=== PATIENT | female | born 1990 | race Caucasian/White ===

== ENCOUNTER → 2017-11-14 | Outpatient (CLI) | payer BC ==
[~2017-11-14] MED LIST: MTR600X PO
== END | disposition home or self-care (01) ==
LOC: C.LABSPEC 17:58
PROVIDERS: ATTEND Nurse Practitioner
DX: R19.8 Other specified symptoms and signs involving the digestive system and abdomen (principal)

== ENCOUNTER 2021-01-19 05:24 | Inpatient (IN) ==
--- NOTE | 2021-01-07 13:26 | Communication Note ---
Patient scheduled for upcoming planned c/s 01/19/21. Patient was personally COVID positive 11/27/20 (report in [employer]). At time of infection, patient had fever, body aches, loss of taste/smell, dyspnea which has since resolved (except for persistence in difficulty smelling but nothing new/different). Per PAT electric serviceman on 12/31: travel screen negative, no known COVID-19 positive contacts or current COVID-19 related symptoms (except for persistence in difficulty smelling since initial infection). Low concern for re-infection. DOS 53 days si nce initial infection. Case reviewed with Dr. Hutson, able to proceed with c/s without retesting prior given transmission-based precautions guidelines.
--- NOTE | 2021-01-07 15:43 | Anesthesiology Consultation ---
Date of Service January 07, 2021 Assessment & Plan (1) Encounter for pre-operative examination: Patient scheduled for upcoming planned c/s 01/19/21. Patient was personally COVID positive 11/27/20 (report in [employer]). At time of infection, patient had fever, body aches, loss of taste/smell, dyspnea which has since resolved (except for persistence in difficulty smelling but nothing new/different). Per PAT graphic design assistant on 12/31: travel screen negative, no known COVID-19 positive contacts or current COVID-19 related symptoms (except for persistence in difficulty smelling since initial infection). Low concern for re-infection. DOS 53 days since initial infection. Case reviewed with Dr. Hutson, able to proceed with c/s without retesting prior given transmission-based precautions guidelines. Chart Review Chart Review: entry level account representative initiated History Surgery Operation Date: 01/19/21 08:50 Proposed Procedures p Section in - Shayy Casarez MD, FACOG Height/Weight Height: 5 ft 1 in Weight: 98.883 kg Allergies Allergy/AdvReac Type Severity Reaction Status Date / Time No Known Allergies Allergy Verified 01/07/21 08:24 Medications Home Medications Medication Instructions Recorded Confirmed Last Taken prenat.vits,robert,bic-oqfl-fxlnl 1 tab PO DAILY 05/26/20 01/07/21 Unknown acetone (urine) test #50 ea 12/05/20 01/07/21 Unknown blood sugar diagnostic #120 ea 12/05/20 01/07/21 Unknown blood-glucose meter #1 ea 12/05/20 01/07/21 Unknown lancets 30 gauge #120 ea 12/05/20 01/07/21 Unknown calcium carbonate [Tums] 200 mg PO BID PRN 12/31/20 01/07/21 Unknown Past Medical History Medical History Acid reflux TUMS prn Gestational diabetes History of COVID-19 11/27 [place]; fever, body aches, loss of taste/smell, sob. still unable to smell. TMJ (temporomandibular joint disorder) Past Family History Family History Grandmother (Maternal) Diabetes Father Hypertension Other No family history of adverse response to anesthesia Past Surgical History Surgical History History of wisdom tooth extraction Hx of appendectomy Previous section Social History Smoking Status: Current some day smoker tobacco type: cigarettes Smoking cigarettes per day: 1 pack per week Do You Dip or Chew Tobacco: No Hx Alcohol Use: No Alcohol Intake Frequency Comment: not while preg Hx Substance Use: No substance use type: does not use
--- NOTE | 2021-01-16 18:50 | History and Physical Report ---
DATE OF ADMISSION: 01/19/2021 PREOPERATIVE DIAGNOSES: 1. Intrauterine at 39 and 3/7 weeks. 2. History of previous section for failure to progress, desires repeat. 3. Gestational diabetes, diet controlled. HISTORY OF PRESENT ILLNESS: The patient is a 30-year-old white female 2, para 1-0-0-1 with an intrauterine at 39 and 3/7 weeks who presents for desired elective repeat section. Her first was complicated by a section at 40 weeks for failure to progress and PIH with the [facility]. She declines trial of labor. Her has been complicated by gestational diabetes, diet controlled. Her last AC was performed on 12/22 at 35 and 3/7 weeks and was in the 67th percentile. She is a smoker. She also was positive for COVID on 11/27/2020. She is currently asymptomatic and no followup COVID test was performed on this patient as per policy that a repeat test is not performed within 90 days of a previous positive test. The patient is currently asymptomatic for COVID-related symptoms. The patient has attended all of her visits. LABORATORY DATA: CF and SMA are negative. Blood type is B positive, antibodies are negative. RPR nonreactive, hepatitis B surface antigen negative, HIV negative, rubella immune, gonorrhea and chlamydia cultures negative. Panorama was low risk male. She is positive for group B strep. ALLERGIES: No known drug allergies. MEDICATIONS: Include Tums, vitamin. PAST MEDICAL HISTORY: Significant for acid reflux, gestational diabetes, history of COVID-19 on 11/27 and TMJ. PAST SURGICAL HISTORY: Includes wisdom teeth extraction, appendectomy and previous section. FAMILY HISTORY: Significant for maternal grandmother with diabetes. Father with hypertension. No other significant history to report. SOCIAL HISTORY: The patient does continue to smoke cigarettes. She denies use of alcohol or drugs in this . She denies history of sexually transmitted diseases or abnormal Pap smears. PHYSICAL EXAMINATION: GENERAL: This is a well-developed, well-nourished, obese white female in no acute distress. VITAL SIGNS: Her blood pressure is 130/84, her weight is 225.9 pounds. NECK: Supple without thyromegaly or lymphadenopathy. CHEST: Clear to auscultation bilaterally. CARDIOVASCULAR: Regular rate and rhythm without murmurs, gallops or rubs. ABDOMEN: Gravid, soft, nontender, nondistended. There is a gravid uterus. EXTREMITIES: Show trace edema but are otherwise benign. ASSESSMENT AND PLAN: Michelle is a 2, para 1-0-0-1, at 39-3/7 weeks who presents for repeat section. She declines tubal ligation and a trial of labor. The risks of the procedure were discussed with the patient including the risks of bleeding, infection, risk for transfusion, risk for injuring things around the surgical field with need for further hospitalization or intervention, risk of injury to the baby, risk of heart attack, blood clot, stroke, or . Consent was reviewed and signed. Questions were asked and answered. Surgery is planned for 01/19.
[2021-01-19] MEDS ORDERED: SODIUM CHLORIDE 0.9% 250 ML IV PRN (05:42)
[2021-01-19 05:57] LABS: Basophils # (auto) 0.01 K/uL (0-0.2); Basophils % (auto) 0.1 %; Eosinophils # (auto) 0.09 K/uL (0-0.5); Eosinophils % (auto) 0.8 %; Hematocrit (blood only) 37.3 % (37-47); Hemoglobin 12.7 g/dL (12.0-16.0); Immature Granulocytes # (auto) 0.05 K/uL (0.00-0.02); Immature Granulocytes % (auto) 0.4 %; Lymphocytes # (auto) 2.08 K/uL (1.2-3.4); Lymphocytes % (auto) 18.3 %; Mean Corpuscular Hemoglobin 29.7 pg (25-34); Mean Corpuscular Volume 87.1 fL (80-100); Mean Platelet Volume 11.1 fL (7.4-10.4); Monocytes # (auto) 0.86 K/uL (0.11-0.59); Monocytes % (auto) 7.6 %; Neutrophils # (auto) 8.29 K/uL (1.4-6.5); Neutrophils % (auto) 72.8 %; Platelet Count 170 K/uL (130-400); RDW Coefficient of Variation 14.6 % (11.5-14.5); RDW Standard Deviation 45.5 fL (36.4-46.3); Red Blood Count 4.28 M/uL (4.2-5.4); White Blood Count 11.38 K/uL (4.8-10.8)
[2021-01-19] MEDS ORDERED: ceFAZolin 3,000 MG in SYRINGE 0 ML IV SCH (06:00)
[2021-01-19] MEDS ORDERED: CITRIC ACID/SODIUM CITRATE 15 ML UDC PO SCH (06:00)
[2021-01-19] MEDS ORDERED: LACTATED RINGER'S 1,000 ML IV SCH ×2 (06:15→08:30)
[2021-01-19 06:16] LABS: Appearance Urine Cloudy (Clear); Bacteria Urine Automated 1+ (Negative); Bilirubin Urine Negative (Negative); Blood Urine Negative (Negative); Color Urine Yellow; Epithelial Cell Urine Auto >30 /lpf (0-5); Glucose Urine UA Negative (Negative); Ketones Urine 2+ (Negative); Leukocyte Esterase Urine 2+ (Negative); Nitrite Urine Negative (Negative); Protein Urine Negative (Negative); Specific Gravity Urine 1.019 (1.000-1.030); Urobilinogen Urine Negative (Negative); WBC Urine Automated >30 /hpf (0-5); pH Urine 6.5 (4.5-7.5)
[2021-01-19 06:41] LABS: Cast Urine Automated 0 /lpf (0-5)
[2021-01-19] MEDS ORDERED: fentaNYL citrate 100 MCG/2 ML VIAL ONE (07:10)
[2021-01-19] MEDS ORDERED: MoRPHine SULFATE PF 1 MG/ML 10 ML AMP/VIAL ONE (07:10)
--- NOTE | 2021-01-19 07:11 | History & Physical Bridge Note ---
Date of Service January 19, 2021 History & Physical Bridge Note I have examined the patient, reviewed the History & Physical and in the interval since the performance of the History & Physical I have noted the following changes of clinical significance: no changes noted
[2021-01-19] MEDS ORDERED: OXYTOCIN 10 UNITS/ML VIAL ONE (07:12)
[2021-01-19] MEDS ORDERED: MEPERIDINE HCL 25 MG/ML CARP/VIAL IV PRN (07:44)
[2021-01-19] MEDS ORDERED: diphenhydrAMINE 50 MG/ML VIAL IV PRN (07:44)
[2021-01-19] MEDS ORDERED: NALOXONE HCL 0.4 MG/1 ML VIAL/CARP IV PRN (07:44)
[2021-01-19] MEDS ORDERED: ePHEDrine sulfate 50 MG/ML AMP IV PRN (07:44)
[2021-01-19] MEDS ORDERED: MoRPHine SULFATE PF 1 MG/ML 10 ML AMP/VIAL INT SPINAL ONE (07:44)
[2021-01-19] MEDS ORDERED: LACTATED RINGER'S 500 ML IV PRN (07:44)
[2021-01-19] MEDS ORDERED: NALOXONE HCL 1 MG in SODIUM CHLORIDE 0.9% 1000ML 1,000 ML IV PRN (07:44)
[2021-01-19] MEDS ORDERED: ONDANSETRON INJ 2 MG/ML 2 ML VIAL IV PRN (07:44)
[2021-01-19] MEDS ORDERED: NALOXONE HCL 0.08 MG in SYRINGE 1.8 ML IV PRN (07:44)
[2021-01-19] MEDS ORDERED: NO NARCOTICS OR SEDATIVES SCH (07:45)
[2021-01-19] MEDS ORDERED: SODIUM CHLORIDE 0.9% 1000ML 1,000 ML IV SCH (07:45)
[2021-01-19] MEDS ORDERED: PHENYLEPHRINE 100MCG/ML 5ML SYR ONE (07:58)
[2021-01-19] MEDS ORDERED: ONDANSETRON INJ 2 MG/ML 2 ML VIAL ONE (08:11)
[2021-01-19] MEDS ORDERED: SENNA 8.6 MG TAB PO PRN (08:21)
[2021-01-19] MEDS ORDERED: SUPERCREAM 0.870% 15 GM JAR EXT PRN (08:21)
[2021-01-19] MEDS ORDERED: HYDROCORTISONE ACETATE 25 MG SUPP PR PRN (08:21)
[2021-01-19] MEDS ORDERED: DIPHTHERIA/TETANUS/PERTUSSIS 0.5 ML SYR/VIAL IM ONE (08:21)
[2021-01-19] MEDS ORDERED: BENZOCAINE 20% AER SPR 82.5 GM CAN EXT PRN (08:21)
[2021-01-19] MEDS ORDERED: MAGNESIUM HYDROXIDE SUSP 30 ML UDC PO PRN (08:21)
--- NOTE | 2021-01-19 08:29 | Operative Report ---
PG Post Operative Report Pre & Post Diagnosis Operation Date: 01/19/21 07:30 Pre-Op Diagnosis: 1. IUP at 39.3 weeks gestation 2. History of previous section 3. Desires repeat Post-Op Diagnosis: 1. Same I identified the patient and participated in the time-out.: Yes Procedure Operation Date: 01/19/21 07:30 Actual Procedures p Repeat lower transverse Section in OR; Repeaswt section for the of a live male at 0754 (Main O.R. #3)(Bilateral) - Shayy Casarez MD, FACOG Surgeon Shayy Casarez MD, FACOG Alternative Education Teacher Kartik Guan, MS 2 Estimated Blood Loss 500 Findings Consistent with Post-Op Diagnosis viable male , apgars 8/9, nl uterus/tubes/ovaries Fluids 1800cc Specimens placenta Drains fried Anesthesia Type Spinal Complications none Disposition Accompanied Patient To Recovery: No Disposition: L&D Indications Patient is a with iup at 39 3/7 weeks who desires repeat c/s. Description of Procedure The patient was taken to the operating room where she was identified verbally and by bracelet. She was seated on the operating table where a spinal anesthetic was placed by anesthesia. she was then placed in the supine position with a leftward tilt. A Fried catheter was placed sterilely. the patient was prepped and draped in a normal standard fashion. the anesthetic was tested and found to be adequate. A time-out was held, identifying correct patient, proce dure, positioning and preoperative antibiotics. There were no concerns. A Pfannenstiel skin incision was made with a knife and taken down to the underlying layer of fascia with the knife and Bovie electrocautery. Bleeding was attended to with Bovie cautery. The fascia was incised in the midline with the knife and taken out laterally with scissors. the superior edge of the fascial incision was grasped, elevated and the underlying layer of rectus muscle was taken off bluntly and with scissors. In a similar fashion, the inferior edge of the fascial incision was grasped, elevated and the underlying layer of rectus muscle was taken off bluntly and with scissors. The muscles were bluntly in the midline. The peritoneum was entered bluntly. The incision was then stretched. The bladder blade was placed. The vesicouterine peritoneum was identified, entered with scissors and taken out laterally with scissors. The bladder flap was created digitally A hysterotomy incision was scored with a knife and the incision was stretched cephalad and caudad with the dehydrogenation operator's fingers. The operators hand was placed into the incision and the head was delivered atraumtically. No nuchal cord. The nose and mouth were bulb suctioned. the rest of the was then delivered without difficulty. The nose and mouth were again bulb suctioned. the cord was clamped and cut and the infant was then handed off to the awaiting director dietetics department for drying and attention. Cord blood and segment were obtained. The placenta was expressed. the uterus was exteriorized and cleared of all clot and debris with moistened laparotomy sponges. The hysterotomy incision was repaired in two layers, the first in a running locked layer, the second in an imbricating layer. Hemostasis was noted to be good. Posterior cul-de-sac was irrigated and cleared of all clot and debris. The hysterotomy incision was again inspected and found to be hemostatic. the uterus was reinteriorized. Hysterotomy incision was again inspected and one stitch needed in the midline and a small bleeder on the left of the incision cauterized. Rectus muscles were reapproximated with several interrupted stitches of 0 Vicryl. The fascia was then reapproximated with 0 Vicryl starting at the edges and meeting in the midline. The subcuticular tissues were copiously irrigated and bleeding was attended to with cautery. Closed with 2-0 plain gut. The skin was then closed with 4-0 Vicryl in a subcuticular fashion. All sponge, lap and needle counts were correct x 2. The patient was taken to recovery in stable consition. I attest to the content of the Intraoperative Record and any orders documented therein. Any exceptions are noted below.
[2021-01-19 08:36] LABS: Base Excess Cord Arterial Bld -3.5 mEq/L (-9-1.8); CO2 Cord Arterial Blood 57 mmHg (39.1-73.5); HCO3 Cord Arterial Blood 25 mmol/L (19.7-28.5); PO2 Cord Arterial Blood 11 mmHg (4.1-31.7); pH Cord Arterial Blood 7.26 (7.1-7.38)
[2021-01-19 08:40] LABS: Oxygen Sat Cord Arterial Blood < 60.0 % (<60)
[2021-01-19 08:42] LABS: Base Excess Cord Venous Blood -2.3 mEq/L (-7.7-1.9); Cord Venous Blood HCO3 24 mmol/L (18.4-26.8); Cord Venous Blood PCO2 46 mmHg (30.4-57.2); Cord Venous Blood PO2 24 mmHg (14.1-43.3); Cord Venous Blood pH 7.34 (7.20-7.44)
[2021-01-19 08:44] LABS: O2 Saturation Cord Venous Bld < 60.0 % (<68)
--- NOTE | 2021-01-19 08:55 | Anesthesiology Progress Note ---
Date of Service January 19, 2021 Anesthesia Post Procedure Vital Signs Vital Signs: Temp Pulse Resp BP Pulse Ox 01/19/21 08:49 81 95 01/19/21 08:45 80 116/66 01/19/21 08:44 75 97 01/19/21 08:40 74 94 01/19/21 08:39 73 96 01/19/21 08:34 80 119/67 93 01/19/21 05:48 98.2 F 18 01/19/21 05:34 96 H 136/88 Transfer of Care Handoff Completed per policy Notes Mental Status: alert / awake / arousable and participated in evaluation Patient Amnestic to Procedure: Yes Nausea / Vomiting: adequately controlled Pain: adequately controlled Airway Patency, RR, SpO2: stable & adequate BP & HR: stable & adequate Hydration State: stable & adequate Neuraxial Anesthesia: was administered and sensory block is resolving Anesthetic Complications: no major complications apparent and Pt Satisfied with anesthetic care
[2021-01-19] MEDS: OXYTOCIN 20 UNITS in LACTATED RINGER'S 1,000 ML IV SCH ×2 (10:27→18:34)
[2021-01-19] MEDS: SIMETHICONE 80 MG CHEW PO SCH ×3 (13:04→20:34)
[2021-01-19] MEDS: KETOROLAC 30 MG/ML VIAL IV PRN ×2 (13:11→20:36)
[2021-01-19] MEDS: DOCUSATE SODIUM 100 MG CAP PO SCH (20:34)
[2021-01-20] MEDS ORDERED: DC INTRASPINAL MORPHINE ONE (01:44)
[2021-01-20] MEDS ORDERED: diphenhydrAMINE 50 MG/ML VIAL IV PRN (01:45)
[2021-01-20] MEDS ORDERED: diphenhydrAMINE Capsule 25 MG CAP PO PRN (01:45)
[2021-01-20] MEDS ORDERED: KETOROLAC 30 MG/ML VIAL IV PRN (01:45)
[2021-01-20] MEDS ORDERED: oxyCODONE/ACETAMINOPHEN 5mg/325mg TAB PO PRN (01:45)
[2021-01-20] MEDS ORDERED: ONDANSETRON INJ 2 MG/ML 2 ML VIAL IV PRN (01:45)
[2021-01-20] MEDS ORDERED: ZOLPIDEM TARTRATE 5 MG TAB PO PRN (01:45)
[2021-01-20] MEDS ORDERED: PROMETHAZINE HCL 25 MG in SODIUM CHLORIDE 0.9% 50 ML IV PRN (01:45)
[2021-01-20] MEDS: IBUPROFEN 600 MG TAB PO PRN ×6 (02:02→21:28)
--- NOTE | 2021-01-20 05:48 | Obstetrical Progress Note ---
Date of Service <Miguel Siegel MD - Last Filed: 01/20/21 06:52> January 20, 2021 Assessment & Plan <Miguel Siegel MD - Last Filed: 01/20/21 06:52> (1) state: 30 y/o who is s/p rLTCS at 39w3d and is PPD1. Rubella immune. GBS pos. GDM. Covid+ 11/27/20. Smoker during . No complications during c section. - vitals reviewed at 0315, stable - Hb 12.7->11.5, appropriate - meeting milestones. ambulating, eating, voiding, + flatus - without problems - continue routine care. will remove c section bandage later this morning - cord gases wnl - tentative dispo tomorrow Subjective <Miguel Siegel MD - Last Filed: 01/20/21 06:52> Ambulation: ambulating normally Voiding: no voiding problems Passing Gas:: Yes Diet Tolerance:: regular diet Lochia:: Moderate Feeding Type:: breast feeding (no issues. ) Current Pain Level(1-10): 5 No acute complaints. Review of Systems Denies fever, chills, sweats Denies shortness of breath, chest pain, palpitations. Denies breast pain. Denies dysuria. Denies headache or changes in vision. Denies nausea/vomiting. Denies numbness, tingling, weakness. Denies calf pain Denies mood problems. Physical Exam <Miguel Siegel MD - Last Filed: 01/20/21 06:52> General: Alert, oriented. No acute distress. Cardiac: Regular rate and rhythm, no murmurs/rubs/gallops. Respiratory: Clear to auscultation bilaterally, no wheezes/rales/rhonchi. No respiratory distress. Abdomen: , soft, nontender to light palpation. + bowel sounds. LTCS incision is bandaged, clean, dry, intact. Uterus: Uterine fundus firm, palpable 1cm below umbilicus. Lower Extremities: Lower extremity has mild puffy appearance, but no pitting edema. No deep calf pain. Tj's negative bilaterally. Psych: Flat affect Results & Data ([facility]) <Miguel Siegel MD - Last Filed: 01/20/21 06:52> Vital Signs (Past 12 Hours) Vital Signs Temp Pulse Resp BP Pulse Ox 01/20/21 03:15 36.9 C 91 H 18 124/85 01/20/21 01:45 17 99 01/20/21 00:40 17 95 01/19/21 23:40 18 96 01/19/21 23:30 36.6 C 83 18 123/80 95 01/19/21 22:40 18 98 01/19/21 21:30 18 96 01/19/21 20:35 18 96 01/19/21 19:30 37.1 C 85 20 117/79 97 01/19/21 18:00 16 98 Medications Administered <Shayy Casarez MD, FACOG - Last Filed: 01/20/21 07:27> Co-Signing Physician Notes Resident Physician Supervision Note: I interviewed and examined the patient. Discussed with Dr. Siegel and agree with findings and plan as documented in the note. Any exceptions or clarifications are listed here: Doing well, PPD 1. Routine care. Incision c/d/i. Documented By: Shayy Casarez MD, FACOG Resident Activity Tracking <Miguel Siegel MD - Last Filed: 01/20/21 06:52> Resident Involvement: Resident Care Provided Care Provided: OB Delivery
[2021-01-20 06:09] LABS: Basophils # (auto) 0.01 K/uL (0-0.2); Basophils % (auto) 0.1 %; Eosinophils # (auto) 0.12 K/uL (0-0.5); Eosinophils % (auto) 1.2 %; Hematocrit (blood only) 33.8 % (37-47); Hemoglobin 11.5 g/dL (12.0-16.0); Immature Granulocytes # (auto) 0.03 K/uL (0.00-0.02); Immature Granulocytes % (auto) 0.3 %; Lymphocytes # (auto) 1.57 K/uL (1.2-3.4); Lymphocytes % (auto) 15.7 %; Mean Corpuscular Hemoglobin 29.8 pg (25-34); Mean Corpuscular Volume 87.6 fL (80-100); Mean Platelet Volume 10.9 fL (7.4-10.4); Monocytes # (auto) 0.94 K/uL (0.11-0.59); Monocytes % (auto) 9.4 %; Neutrophils # (auto) 7.32 K/uL (1.4-6.5); Neutrophils % (auto) 73.3 %; Platelet Count 166 K/uL (130-400); RDW Coefficient of Variation 14.6 % (11.5-14.5); RDW Standard Deviation 46.6 fL (36.4-46.3); Red Blood Count 3.86 M/uL (4.2-5.4); White Blood Count 9.99 K/uL (4.8-10.8)
[2021-01-20] MEDS: PRENATAL VITAMIN 1 TAB PO SCH (07:24)
[2021-01-20] MEDS: DOCUSATE SODIUM 100 MG CAP PO SCH ×2 (07:24→21:28)
[2021-01-20] MEDS: SIMETHICONE 80 MG CHEW PO SCH ×4 (07:24→21:27)
--- NOTE | 2021-01-20 08:30 | Anesthesiology Progress Note ---
Date of Service January 20, 2021 Anesthesia Post Procedure Vital Signs Vital Signs: Temp Pulse Pulse Pulse Resp BP BP 01/20/21 07:25 37.0 C 88 18 135/84 01/20/21 03:15 36.9 C 91 H 18 124/85 01/20/21 01:45 17 01/20/21 00:40 17 01/19/21 23:40 18 01/19/21 23:30 36.6 C 83 18 123/80 01/19/21 22:40 18 01/19/21 21:30 18 01/19/21 20:35 18 01/19/21 19:30 37.1 C 85 20 117/79 01/19/21 18:00 16 01/19/21 16:58 18 01/19/21 16:00 16 01/19/21 15:15 37 C 80 18 113/77 01/19/21 14:38 16 01/19/21 13:39 36.6 C 85 14 121/76 01/19/21 12:20 37.0 C 96 H 18 127/82 01/19/21 11:20 36.5 C 86 16 116/76 01/19/21 11:09 93 H 01/19/21 11:04 89 01/19/21 11:01 89 01/19/21 10:59 89 01/19/21 10:55 78 119/76 01/19/21 10:54 86 01/19/21 10:53 81 01/19/21 10:49 84 01/19/21 10:44 92 H 01/19/21 10:39 92 H 01/19/21 10:35 36.7 C 18 01/19/21 10:34 89 01/19/21 10:29 89 01/19/21 10:25 89 124/83 01/19/21 10:24 79 01/19/21 10:21 88 01/19/21 10:19 85 01/19/21 10:15 86 01/19/21 10:14 93 H 01/19/21 10:09 78 01/19/21 10:05 18 01/19/21 10:04 81 01/19/21 09:59 85 01/19/21 09:55 78 128/73 01/19/21 09:54 82 01/19/21 09:49 81 01/19/21 09:47 90 130/81 01/19/21 09:44 88 01/19/21 09:39 80 01/19/21 09:37 70 01/19/21 09:35 75 18 130/69 01/19/21 09:34 89 01/19/21 09:29 80 01/19/21 09:26 94 H 130/76 01/19/21 09:25 18 01/19/21 09:24 90 01/19/21 09:19 83 01/19/21 09:15 78 18 128/60 01/19/21 09:14 75 01/19/21 09:09 84 01/19/21 09:05 81 18 144/67 H 01/19/21 09:04 87 01/19/21 08:59 86 01/19/21 08:57 111 H 01/19/21 08:55 78 18 136/64 01/19/21 08:54 87 01/19/21 08:49 81 01/19/21 08:45 80 18 116/66 01/19/21 08:44 75 01/19/21 08:40 74 01/19/21 08:39 73 01/19/21 08:35 36.8 C 18 01/19/21 08:34 80 119/67 Pulse Ox Pulse Ox 01/20/21 07:25 98 01/20/21 03:15 01/20/21 01:45 99 01/20/21 00:40 95 01/19/21 23:40 96 01/19/21 23:30 95 01/19/21 22:40 98 01/19/21 21:30 96 01/19/21 20:35 96 01/19/21 19:30 97 01/19/21 18:00 98 01/19/21 16:58 97 01/19/21 16:00 97 01/19/21 15:15 97 97 01/19/21 14:38 98 01/19/21 13:39 97 01/19/21 12:20 96 01/19/21 11:20 92 92 01/19/21 11:09 93 01/19/21 11:04 90 01/19/21 11:01 91 01/19/21 10:59 93 01/19/21 10:55 01/19/21 10:54 94 01/19/21 10:53 91 02/22/21 10:49 93 01/19/21 10:44 92 01/19/21 10:39 93 01/19/21 10:35 01/19/21 10:34 93 01/19/21 10:29 93 01/19/21 10:25 01/19/21 10:24 92 01/19/21 10:21 94 01/19/21 10:19 93 01/19/21 10:15 94 01/19/21 10:14 96 01/19/21 10:09 96 01/19/21 10:05 01/19/21 10:04 97 01/19/21 09:59 96 01/19/21 09:55 01/19/21 09:54 99 01/19/21 09:49 97 01/19/21 09:47 01/19/21 09:44 97 01/19/21 09:39 98 01/19/21 09:37 90 01/19/21 09:35 01/19/21 09:34 97 01/19/21 09:29 95 01/19/21 09:26 01/19/21 09:25 01/19/21 09:24 97 01/19/21 09:19 98 01/19/21 09:15 01/19/21 09:14 98 01/19/21 09:09 97 01/19/21 09:05 01/19/21 09:04 97 01/19/21 08:59 98 01/19/21 08:57 92 01/19/21 08:55 01/19/21 08:54 99 01/19/21 08:49 95 01/19/21 08:45 01/19/21 08:44 97 01/19/21 08:40 94 01/19/21 08:39 96 01/19/21 08:35 01/19/21 08:34 93 Notes Mental Status: alert / awake / arousable and participated in evaluation Patient Amnestic to Procedure: Yes Nausea / Vomiting: adequately controlled Pain: adequately controlled Airway Patency, RR, SpO2: stable & adequate Hydration State: stable & adequate Neuraxial Anesthesia: was administered and sensory block is resolving Anesthetic Complications: no major complications apparent and Pt Satisfied with anesthetic care
[2021-01-20] MEDS ORDERED: bisacodyL 5 MG TABEC PO SCH (20:00)
[2021-01-21] MEDS: IBUPROFEN 600 MG TAB PO PRN ×2 (01:30→06:28)
[2021-01-21 06:20] LABS: Hematocrit (blood only) 33.9 % (37-47); Hemoglobin 11.4 g/dL (12.0-16.0)
--- NOTE | 2021-01-21 06:32 | Obstetrical Progress Note ---
Date of Service <Miguel Siegel MD - Last Filed: 01/21/21 07:00> January 21, 2021 Assessment & Plan <Miguel Siegel MD - Last Filed: 01/21/21 07:00> (1) state: 30 y/o who is s/p rLTCS at 39w3d and is PPD2. Rubella immune. GBS pos. GDM. Covid+ 11/27/20. Smoker during . No complications during c section. - Hb 12.7->11.5->11.4, appropriate - meeting milestones. ambulating, eating, voiding, + flatus - - continue routine care - dispo today. instructions reviewed. Subjective <Miguel Siegel MD - Last Filed: 01/21/21 07:00> Ambulation: ambulating normally Voiding: no voiding problems Passing Gas:: Yes Diet Tolerance:: regular diet Lochia:: Small Feeding Type:: breast feeding (still attempting. main complaint is painful during feeding. currently, combining w/ bottle feeding.) Current Pain Level(1-10): 3 (3-4, controlled) prefers home today Review of Systems Denies fever, chills, sweats Denies shortness of breath, chest pain, palpitations. Denies breast pain. Denies dysuria. Denies headache or changes in vision. Denies nausea/vomiting. Denies numbness, tingling, weakness. no calf pain no mood issues Physical Exam <Miguel Siegel MD - Last Filed: 01/21/21 07:00> General: Alert, oriented. No acute distress. Cardiac: Regular rate and rhythm, no murmurs/rubs/gallops. Respiratory: Clear to auscultation bilaterally, no wheezes/rales/rhonchi. No respiratory distress. Abdomen: , soft, nontender. LTCS incision has steri strips attached and is nonerythematous. No drainage. Uterus: Uterine fundus firm, palpable below umbilicus, but was difficult to palpate. Lower Extremities: No lower extremity edema or swelling. Mild puffy appearance of ankles. No deep calf pain. Tj's negative bilaterally. Results & Data ([facility]) <Miguel Siegel MD - Last Filed: 01/21/21 07:00> Vital Signs (Past 12 Hours) Vital Signs Temp Pulse Resp BP Pulse Ox 01/20/21 23:20 37.0 C 91 H 18 122/84 97 01/20/21 20:25 36.4 C L 99 H 18 103/70 98 Medications Administered <Sara Olivera MD, FACOG - Last Filed: 01/21/21 08:14> Co-Signing Physician Notes Resident Physician Supervision Note: I interviewed and examined the patient. Discussed with Dr. Siegel and agree with findings and plan as documented in the note. Any exceptions or clarifications are listed here: [None] Documented By: Sara Olivera MD, FACOG
[2021-01-21] MEDS: PRENATAL VITAMIN 1 TAB PO SCH (07:33)
[2021-01-21] MEDS: DOCUSATE SODIUM 100 MG CAP PO SCH (07:33)
[2021-01-21] MEDS: SIMETHICONE 80 MG CHEW PO SCH (07:34)
[2021-01-21] MEDS ORDERED: bisacodyL 10 MG SUPP PR PRN (08:21)
--- NOTE | 2021-01-22 21:33 | Discharge Summary (DS) ---
ADMISSION DIAGNOSES: 1. Intrauterine at 39 and 3/7 weeks. 2. History of previous section for failure to progress, desires repeat. 3. Diet-controlled gestational diabetes. POSTOPERATIVE DIAGNOSES: 1. Intrauterine at 39 and 3/7 weeks. 2. History of previous section for failure to progress, desires repeat. 3. Diet-controlled gestational diabetes. PROCEDURES: Repeat lower transverse section. HISTORY OF PRESENT ILLNESS: The patient is a 30-year-old white female 2, para 1-0-0-1 with an intrauterine at 39 and 3/7 weeks, who presents for desired elective repeat section. Her first was complicated by a section at 40 weeks for failure to progress and PIH with the [facility]. She declines trial of labor. Her has been complicated by gestational diabetes, which has been well controlled on diet. Her last abdominal circumference was on 12/22/2020 and was in the 67th percentile. She is a smoker. She was positive for COVID on 11/27/2020. She is currently asymptomatic and no COVID test was performed on this patient as per policy that a repeat test is not performed within 90 days of a previous positive test. The patient is currently asymptomatic as stated. The patient has attended all of her visits. For the rest of the patient's detailed history and physical, please see her history and physical. ASSESSMENT: This is a 2, para 1-0-0-1, at 39 and 3/7 weeks, who presents for repeat elective section. HOSPITAL COURSE: The patient was admitted and underwent a repeat lower transverse section to deliver a live male infant with Apgars of 8 and 9. Normal uterus, tubes, and ovaries were noted bilaterally. The patient's postoperative course was uncomplicated. She tolerated a regular diet, ambulated without difficulty, had her pain well controlled on oral pain medications, and voided after the removal of her Alfaro catheter. Her discharge hemoglobin was 11.4. She was without difficulty. She desired discharge on postoperative day 2, was sent home with routine instructions and to schedule a 6-week appointment.
== END 2021-01-21 10:08 | disposition home or self-care (01) | DRG 788 ==
LOC: 4S1 05:24 → EDSTATUS 08:50 → 4S2 11:20

== ENCOUNTER 2024-03-23 04:35 | Inpatient (IN) ==
--- NOTE | 2024-03-07 13:22 | Anesthesiology Consultation ---
Date of Service March 07, 2024 Assessment & Plan (1) Encounter for pre-operative examination: Infectious disease screening: Per assessment on 03/07/24: No known infectious disease contacts or current infectious disease symptoms. No noted recent Covid positive test result. Chart Review Chart Review: charge entry specialist initiated History Surgery Operation Date: 03/23/24 07:30 Proposed Procedures p Section (Delivery of Baby Through Abdominal Incision) - Shayy Casarez MD, FACOG s with Bilateral Tubal Ligation - Shayy Casarez MD, FACOG Height/Weight Height: 5 ft Weight: 97.069 kg Allergies Allergy/AdvReac Type Severity Reaction Status Date / Time No Known Allergies Allergy Verified 03/07/24 12:51 Medications Home Medications Medication Instructions Recorded Confirmed Last Taken [id number] 1 tab PO QAM 08/10/23 03/07/24 Unknown [] acetone (urine) test (Ketone Urine #50 ea 09/12/23 03/02/24 Unknown Test strips) blood sugar diagnostic (OneTouch #150 ea 09/12/23 03/02/24 Unknown Verio test strips) blood-glucose meter (OneTouch #1 ea 09/12/23 03/02/24 Unknown Verio Reflect Meter) insulin NPH isoph U-100 human 100 5 unit (0.05 mL) subcut QPM #15 mL 01/27/24 03/07/24 Unknown unit/mL (3 mL) subcutaneous pen (Novolin N FlexPen) insulin aspart U-100 100 unit/mL 5 unit (0.05 mL) subcut TID #15 mL 02/07/24 03/07/24 Unknown (3 mL) subcutaneous pen (Novolog FlexPen U-100 Insulin aspart) lancets 33 gauge (OneTouch Delica #150 ea 03/07/24 Unknown Plus Lancet) pen needle, diabetic 32 gauge x #150 ea 03/07/24 Unknown 5/32" (BD Ultra-Fine Rosie Pen Needle) Past Medical History Medical History Acid reflux Gestational diabetes History of COVID-19 10/2021 [place]: fever, body aches, loss of taste/smell, SOB > resolved Obesity TMJ (temporomandibular joint disorder) Past Family History Family History Grandmother (Maternal) Diabetes Father Hypertension Grandmother (Paternal) Breast cancer Other No family history of adverse response to anesthesia Denies family history of Ovarian cancer Prostate cancer Myocardial infarction Colorectal cancer Past Surgical History Surgical History History of wisdom tooth extraction Hx of appendectomy Nausea and vomiting after administration of anesthetic agent Previous section x2 Social History Smoking Status: Current every day smoker tobacco type: cigarettes Smoking cigarettes per day: 2-3 per day - advised Do You Dip or Chew Tobacco: No Hx Alcohol Use: No Hx Substance Use: No substance use type: does not use
--- NOTE | 2024-03-22 20:14 | History & Physical Report ---
Date of Service March 22, 2024 Assessment & Plan (1) Insulin controlled gestational diabetes mellitus (GDM) during : (2) Previous delivery affecting , antepartum: (3) with 39 completed weeks gestation: (4) Encounter for sterilization: Plan Plan on admission with repeat and bilateral salpingectomy. The risks of surgery were discussed with the patient including the risks of anesthesia, bleeding requiring transfusion, infection, poor wound healing, urinary retention, damage to surrounding structures including bowels, bladder, vessels, nerves and ureters that may require further surgery, hospitalization or intervention. The other risks of any surgery were discussed including heart attack, blood clots, stroke or . Discussed potential injury to the baby. discussed other reversible options for contraception and vasectomy, declines. Understands about permanence and regret, risk of ectopic if she does conceive. Questions asked and answered and consent reviewed and signed. History of Present Illness Chief Complaint: repeat Primary Care Provider: Juany Bentley MD Patient is a 33yowf with iup at 39 2/7 weeks who presents for a repeat . Hx of x 2. Desires Tubal sterilization. the has been complicated by GDM on insulin. Last us was 4 with AC 98% and efw 88%. First was at an outside hospital for ftp. Second was elective repeat for a >9# baby. she is also a smoker. and Delivery Plans GDM on insulin *Wkly NSTs @32wks and Twice wkly @36wks *Serial growth US @28wks *Deliver by EDC Obesity (BMI between 35-39 @ beginning of ) *Growth US @ 32 wks *Weekly NSTs @ 36wks Previous x2 Schedule repeat section and BTL @ 28wk C/S WITH HARDYK ON 03/22/24, BAKARI TO ASSIST Current everyday smoker Flu shot given 09/14/23 - AL Lab Results OB Labs: Blood Type B Positive 09/14/23 Antibody Screen NEGATIVE 09/14/23 Hemoglobin 11.9 g/dl (12.0-16.0) L 01/05/24 Hematocrit 33.8 % (37.0-47.0) L 01/05/24 Mean Corpuscular Volume 86.8 fL (80.0-100.0) 09/14/23 Platelet Count 271 K/uL (130-400) 09/14/23 Varicella-Zoster IgG Antibody 3844.00 INDEX 06/28/18 Rubella IgG Antibody Immune (Immune) 09/14/23 Rapid Plasma Reagin Nonreactive (Nonreactive) 09/14/23 Hepatitis B Surface Antigen Neg (Neg) 06/02/20 Hepatitis B Surface Antigen. NON-REACTIVE (NON-REACTIVE) 09/14/23 Hepatitis C Antibody (EIA) NON-REACTIVE (NON-REACTIVE) 09/14/23 HIV (1&2) Ab and P24 Ag, 4th Gener Neg (Neg) 06/02/20 HIV (1&2) Ag and Ab Confirmation NON-REACTIVE (NON-REACTIVE) 09/14/23 Glucose 1 Hour 50 gm Load 177 mg/dl (70-130) H 11/03/20 OB Optional Labs: Chlamydia trachomatis RNA Not Detected (NotDetected) 08/17/23 Neisseria gonorrhoeae RNA Not Detected (NotDetected) 08/17/23 Labs Reviewed: (-) CF/SMA- 2014, [facility] low risk panorama--[facility] GBS positive. Allergies Allergy/AdvReac Type Severity Reaction Status Date / Time No Known Allergies Allergy Verified 03/22/24 16:11 Home Medications Medication Instructions Recorded Confirmed Type tqemkpzs-rlb-Dy-FA 1 tab PO QAM 08/10/23 03/22/24 History [] acetone (urine) test (Ketone Urine #50 ea 09/12/23 03/22/24 Rx Test strips) blood sugar diagnostic (OneTouch #150 ea 09/12/23 03/22/24 Rx Verio test strips) blood-glucose meter (OneTouch #1 ea 09/12/23 03/22/24 Rx Verio Reflect Meter) insulin NPH isoph U-100 human 100 5 unit (0.05 mL) subcut QPM #15 mL 01/27/24 03/22/24 Rx unit/mL (3 mL) subcutaneous pen (Novolin N FlexPen) insulin aspart U-100 100 unit/mL 5 unit (0.05 mL) subcut TID #15 mL 02/07/24 03/22/24 Rx (3 mL) subcutaneous pen (Novolog FlexPen U-100 Insulin aspart) lancets 33 gauge (OneTouch Delica #150 ea 03/08/24 03/22/24 Rx Plus Lancet) pen needle, diabetic 32 gauge x #150 ea 03/08/24 03/22/24 Rx 32" (BD Ultra-Fine Rosie Pen Needle) Patient History Medical History Obesity History of COVID-19 10/2021 [place]: fever, body aches, loss of taste/smell, SOB > resolved Acid reflux Gestational diabetes TMJ (temporomandibular joint disorder) Surgical History History of wisdom tooth extraction Hx of appendectomy Nausea and vomiting after administration of anesthetic agent Previous section x2 Family History Grandmother (Maternal) Diabetes Father Hypertension Grandmother (Paternal) Breast cancer Other No family history of adverse response to anesthesia Denies family history of Ovarian cancer Prostate cancer Myocardial infarction Colorectal cancer Social History Smoking Status: Current every day smoker Tobacco Type: Cigarettes Age Started Using Tobacco: 19; Cigarettes Per Day: 2-3 per day - advised; Second Hand Exposure: No; Do You Dip or Chew Tobacco: No; Hx Alcohol Use: No Hx Substance Use: No Preferred Language: Malawian Communication Ability: Effective Visual Impairment: No Limitations Real Estate Consultant Required: No Beliefs That Will Affect Care: None marital status: marital status details: Luis Antonio Gilliam (31) [phone] Current Living Situation: Spouse and Family Current Living Situation Comment: lives with spouse, 2 children, current occupational status: employed 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 Date GA wks Lbr Lgth wt Sex Type del Anes Place Del Prov ? Comment 10/06/15 40 17 8-8 M Spinal [employer] GMG No FTP, PIH 01/19/21 39 9lbs 4.2oz M C-Secti on Spinal [employer] Dr Casarez No GDM diet controlled [employer] History noncontributory Physical Exam Constitutional: WD/WN, vitals as above Gastrointestinal (Abdomen): soft, gravid, nt Psychiatric: A+Ox3, euthymic affect Coding Level of Care Code None Diagnoses Insulin controlled gestational diabetes mellitus (GDM) during O24.414 Previous delivery affecting , antepartum O34.219 with 39 completed weeks gestation Z3A.39 Encounter for sterilization Z30.2
[2024-03-23] MEDS ORDERED: SODIUM CHLORIDE 0.9% 250 ML IV PRN (05:39)
[2024-03-23] MEDS: LACTATED RINGER'S 1,000 ML IV SCH (06:06)
[2024-03-23] MEDS ORDERED: LIDOCAINE 1% LOCAL 20 ML VIAL INFIL PRN (06:35)
[2024-03-23] MEDS ORDERED: OXYTOCIN 30 UNITS/NSS 30 UNITS/500 ML BAG IV PRN (06:35)
[2024-03-23 07:07] LABS: Hemoglobin 12.3 g/dl (12.0-16.0); Mean Corpuscular Hemoglobin 29.4 pg (25.0-34.0); Mean Corpuscular Hgb Conc 34.2 g/dL (32.0-36.0); Mean Corpuscular Volume 85.9 fL (80.0-100.0); Platelet Count 184 K/uL (130-400); RDW Coefficient of Variation 13.7 % (11.5-14.5); RDW Standard Deviation 42.2 fL (36.4-46.3); Red Blood Count 4.19 M/uL (4.20-5.40); White Blood Count 14.28 K/ul (4.8-10.8)
[2024-03-23] MEDS: BUTORPHANOL TARTRATE 2 MG/ML VIAL IV ONE (07:50)
[2024-03-23] MEDS ORDERED: MoRPHine SULFATE PF 1 MG/ML 10 ML AMP/VIAL ONE (09:04)
[2024-03-23] MEDS ORDERED: fentaNYL citrate PF 100 MCG/2 ML VIAL ONE (09:04)
[2024-03-23] MEDS ORDERED: PHENYLEPHRINE HCL 10 MG/ML VIAL ONE (09:04)
[2024-03-23] MEDS ORDERED: OXYTOCIN 10 UNITS/ML VIAL ONE ×3 (09:05)
[2024-03-23] MEDS: CITRIC ACID/SODIUM CITRATE 15 ML UDC PO SCH (10:50)
[2024-03-23] MEDS: ceFAZolin 3,000 MG/72.5 ML BAG IV SCH (10:50)
--- NOTE | 2024-03-23 11:15 | History & Physical Bridge Note ---
Date of Service March 23, 2024 History & Physical Bridge Note I have examined the patient, reviewed the History & Physical and in the interval since the performance of the History & Physical I have noted the following changes of clinical significance: admitted with contractions , but abated with iv fluids. Plan for c/s.
[2024-03-23] MEDS ORDERED: NALOXONE HCL 0.4 MG/1 ML VIAL/CARP IV PRN (11:31)
[2024-03-23] MEDS ORDERED: diphenhydrAMINE 50 MG/ML VIAL IV PRN (11:31)
[2024-03-23] MEDS ORDERED: ONDANSETRON INJ 2 MG/ML 2 ML VIAL IV PRN (11:31)
[2024-03-23] MEDS ORDERED: DROPERIDOL 5 MG/2 ML VIAL IV PRN (11:31)
[2024-03-23] MEDS ORDERED: ePHEDrine sulfate 50 MG/ML AMP IV PRN (11:31)
[2024-03-23] MEDS ORDERED: HYDROmorphone INJ 0.5 MG/0.5 ML SYR IV PRN (11:31)
[2024-03-23] MEDS ORDERED: NALOXONE HCL 0.08 MG in SYRINGE 1.8 ML IV PRN (11:31)
[2024-03-23] MEDS ORDERED: LACTATED RINGER'S 500 ML IV PRN (11:31)
[2024-03-23] MEDS ORDERED: NALBUPHINE HCL 5 MG in SYRINGE 0 ML IV PRN (11:31)
[2024-03-23] MEDS ORDERED: NALOXONE HCL 1 MG in SODIUM CHLORIDE 0.9% 1,000 ML IV PRN (11:31)
[2024-03-23] MEDS ORDERED: NO NARCOTICS OR SEDATIVES SCH (11:45)
[2024-03-23] MEDS ORDERED: DC INTRASPINAL MORPHINE SCH (11:45)
[2024-03-23] MEDS ORDERED: HYDROCORTISONE ACETATE 25 MG SUPP PR PRN (12:22)
[2024-03-23] MEDS ORDERED: SENNA 8.6 MG TAB PO PRN (12:22)
[2024-03-23] MEDS ORDERED: MAGNESIUM HYDROXIDE SUSP 30 ML UDC PO PRN (12:22)
[2024-03-23] MEDS ORDERED: BENZOCAINE 20% SPRY 85 APPLN/85 GM CAN EXT PRN (12:22)
[2024-03-23] MEDS ORDERED: LACTATED RINGER'S 1,000 ML IV SCH (12:30)
[2024-03-23] MEDS ORDERED: OXYTOCIN 10 UNITS in LACTATED RINGER'S 1,000 ML IV SCH (12:30)
--- NOTE | 2024-03-23 12:30 | Operative Report ---
PG Post Operative Report Pre & Post Diagnosis Operation Date: 03/23/24 11:20 Pre-Op Diagnosis: 1. Insulin controlled gestational diabetes mellitus (GDM) during : 2. Previous delivery affecting , antepartum: 3. with 39 completed weeks gestation: 4. Encounter for sterilization: I identified the patient and participated in the time-out.: Yes Procedure Repeat lower transverse with bilateral salpingectomy Operation Date: 03/23/24 11:20 <No data on this case meets the specified criteria> Surgeon Shayy Casarez MD, FACOG Food Packer Dr. Marie Estimated Blood Loss 83 Findings Consistent with Post-Op Diagnosis viable female infant in cephalic presentation. normal uterus/tubes/ovs bilaterally. Fluids 700cc uop--20cc Specimens placenta bilateral tubes Drains fried Anesthesia Type Spinal Complications none Disposition Accompanied Patient To Recovery: Yes Disposition: L&D Indications Patient is a 33yowf with iup at 39 weeks with hx of previous x 2. Also desires tubal sterilization. Description of Procedure The patient was taken to the operating room where she was identified verbally and by bracelet. She was seated on the operating table where a spinal anesthetic was placed by anesthesia. She was then placed in the supine position with a leftward tilt. A Fried catheter was placed sterilely. the patient was prepped and draped in a normal standard fashion. the anesthetic was tested and found to be adequate. A time-out was held, identifying correct patient, procedure, positioning and preoperative antibiotics. There were no concerns. A Pfannenstiel skin incision was made with a knife and taken down to the underlying layer of fascia with the knife and Bovie electrocautery. Bleeding was attended to with the Bovie. The fascia was incised in the midline with the knife and taken out laterally with scissors. The superior edge of the fascial incision was grasped, elevated and the underlying layer of rectus muscle was taken off bluntly and with scissors. In a similar fashion, the inferior edge of the fascial incision was grasped, elevated and the underlying layer of rectus muscle was taken off bluntly and with scissors. The muscles were bluntly in the midline. The peritoneum was entered bluntly. The incision was then stretched. The bladder blade was placed. The vesicouterine peritoneum was identified, entered with scissors and taken out laterally with scissors. The bladder flap was created digitally A hysterotomy incision was scored with a knife and the incision was stretched superiorly and inferiorly with the proof press operator's fingers. The operators hand was placed into the incision and the head was delivered atraumatically. Copious clear amniotic fluid noted. Nuchal cord x a reduced. The nose and mouth were bulb suctioned. the rest of the infant was then delivered without difficulty. The nose and mouth were again bulb suctioned. The cord was clamped and cut and the was then handed off to the awaiting yarn sizer for drying and attention. Cord blood and segment were obtained. The placenta was Manually extracted. The uterus was exteriorized and cleared of all clot and debris with moistened laparotomy sponges. The hysterotomy incision was repaired in one layer, a running locked layer. Several interrupted sutures were used on the left corner to obtain hemostasis. Hemostasis was noted to be g ood. Posterior cul-de-sac was irrigated and cleared of all clot and debris. The hysterotomy incision was again inspected and found to be hemostatic. the uterus was reinteriorized. Hysterotomy incision was again inspected and found to be hemostatic. Isabel was placed over the incision , concentrated on the left corner. Rectus muscles were reapproximated with several interrupted stitches of 0 Vicryl. The fascia was then reapproximated with 0 Vicryl starting at the edges and meeting in the midline. The subcuticular tissues were copiously irrigated and bleeding was attended to with cautery. The skin was then closed with 4-0 Vicryl in a subcuticular fashion. All sponge, lap and needle counts were correct x 2. The patient was then taken to the recovery room in stable condition. I attest to the content of the Intraoperative Record and any orders documented therein. Any exceptions are noted below.
[2024-03-23] MEDS: KETOROLAC 30 MG/ML VIAL IV PRN (14:12)
[2024-03-23] MEDS: OXYTOCIN 20 UNITS/LR 1,002 ML IV SCH (14:13)
--- NOTE | 2024-03-23 15:18 | Anesthesiology Progress Note ---
Date of Service March 23, 2024 Anesthesia Post Procedure Vital Signs Vital Signs: Temp Pulse Pulse Resp BP Pulse Ox O2 Del Method 03/23/24 14:28 92 H 97 03/23/24 14:23 88 98 03/23/24 14:20 18 03/23/24 14:18 91 H 140/80 98 03/23/24 14:13 92 H 98 03/23/24 14:08 91 H 97 03/23/24 14:03 99 H 97 03/23/24 14:01 89 92 03/23/24 14:00 85 129/71 03/23/24 13:58 82 97 03/23/24 13:53 89 98 03/23/24 13:48 88 99 03/23/24 13:43 76 97 03/23/24 13:39 86 120/60 03/23/24 13:38 89 97 03/23/24 13:33 75 100 03/23/24 13:32 88 91 03/23/24 13:28 86 129/72 97 03/23/24 13:23 83 100 03/23/24 13:20 16 03/23/24 13:19 86 151/63 H 03/23/24 13:18 91 H 94 03/23/24 13:13 85 100 03/23/24 13:10 18 03/23/24 13:10 93 H 92 03/23/24 13:09 92 H 128/83 03/23/24 13:08 89 98 03/23/24 13:03 91 H 98 03/23/24 13:01 88 94 03/23/24 13:00 18 03/23/24 12:58 83 123/69 100 03/23/24 12:56 88 90 03/23/24 12:53 84 100 03/23/24 12:50 16 03/23/24 12:49 96 H 117/67 03/23/24 12:48 99 H 92 03/23/24 12:46 103 H 91 03/23/24 12:43 103 H 100 03/23/24 12:40 16 03/23/24 12:39 105 H 118/73 03/23/24 12:38 100 H 100 03/23/24 12:36 100 H 91 03/23/24 12:33 83 100 03/23/24 12:30 16 Room Air 03/23/24 12:28 89 109/64 100 03/23/24 12:23 88 98 03/23/24 12:20 36.6 C 87 16 Room Air 03/23/24 12:19 86 116/62 03/23/24 12:18 90 99 03/23/24 07:58 36.7 C 16 03/23/24 07:55 100 H 150/90 H 03/23/24 04:47 125 H 135/90 03/23/24 04:46 36.5 C 18 Pain Intensity Bilateral Abdomen: Pain Intensity: 2 Notes Mental Status: alert / awake / arousable Patient Amnestic to Procedure: Yes Nausea / Vomiting: adequately controlled Pain: adequately controlled Airway Patency, RR, SpO2: stable & adequate BP & HR: stable & adequate Hydration State: stable & adequate Neuraxial Anesthesia: was administered and sensory block is resolving Anesthetic Complications: no major complications apparent
[2024-03-23] MEDS: SIMETHICONE 80 MG CHEW PO SCH (18:42)
[2024-03-23] MEDS: DOCUSATE SODIUM 100 MG CAP PO SCH (20:38)
[2024-03-24] MEDS ORDERED: oxyCODONE/ACETAMINOPHEN 5mg/325mg TAB PO PRN (05:31)
[2024-03-24] MEDS ORDERED: diphenhydrAMINE 50 MG/ML VIAL IV PRN (05:31)
[2024-03-24] MEDS ORDERED: MEPERIDINE HCL 50 MG/ML CARP IV PRN (05:31)
[2024-03-24] MEDS ORDERED: PROMETHAZINE HCL 25 MG in SODIUM CHLORIDE 0.9% 50 ML IV PRN (05:31)
[2024-03-24] MEDS ORDERED: diphenhydrAMINE Capsule 25 MG CAP PO PRN (05:31)
[2024-03-24] MEDS ORDERED: ONDANSETRON INJ 2 MG/ML 2 ML VIAL IV PRN (05:31)
[2024-03-24] MEDS ORDERED: KETOROLAC 30 MG/ML VIAL IV PRN (05:31)
--- NOTE | 2024-03-24 06:21 | Obstetrical Progress Note ---
Date of Service March 24, 2024 Assessment & Plan (1) care following delivery: Plan: Doing well Alfaro out this am Encourage ambulation Pain control Routine post op care Admission and Anticipated Discharge Date Admission Date: March 23, 2024 Supervising Physician Co-Signing Physician Notes Resident Physician Supervision Note: I interviewed and examined the patient. Discussed with Dr. Carrasquillo and agree with findings and plan as documented in the note. Any exceptions or clarifications are listed here: POD 1, doing well. Feels great. Documented By: Shayy Casarez MD, FACOG Subjective 33 yo post op day 1 s/p Ambulation: ambulating normally Voiding: no voiding problems Passing Gas:: Yes Diet Tolerance:: regular diet Lochia:: Small Feeding Type:: breast feeding Current Pain Level: minimal Resting comfortably this AM in NAD. Denies CUEVAS, CP, SOB, N/V/D, LE pain/swelling. Review of Systems Review of Systems: reviewed, per HPI Physical Exam Physical Exam: General: patient resting comfortably, NAD, non-toxic in appearance, answers questions appropriately. Skin: warm, dry, intact HEENT: NC/AT, anicteric sclera, conjunctiva without injection, moist mucus membranes. Heart: +S1/S2, regular, no m/r/g Lungs: equal air entry bilaterally, no rales/rhonchi/wheezes Abd: +BS, soft, NT/ND, uterine fundus firm at umbilicus, caesarean incision C/D/I. Ext: warm, no clubbing/cyanosis or edema, Tj's neg. Neuro: nonfocal, speech intact, no facial droop, moving all extremities. Results & Data Vital Signs (Past 12 Hours) Vital Signs Temp Pulse Resp BP Pulse Ox O2 Del Method 03/24/24 05:33 18 97 03/24/24 04:58 16 96 03/24/24 04:02 18 98 03/24/24 03:20 36.8 C 95 H 20 114/75 96 Room Air 03/24/24 03:03 18 97 03/24/24 01:58 16 96 03/24/24 01:00 18 96 03/24/24 00:08 16 96 03/23/24 23:25 36.6 C 83 18 119/79 96 Room Air 03/23/24 23:05 18 97 03/23/24 22:00 18 97 03/23/24 21:05 16 95 03/23/24 20:00 Room Air 03/23/24 20:00 36.8 C 88 18 132/84 100 Room Air 03/23/24 20:00 18 100 03/23/24 19:00 18 98 03/23/24 18:46 18 99 Resident Activity Tracking Resident Involvement: Resident Care Provided Care Provided: Adult Hospital Medicine
[2024-03-24 07:49] LABS: Basophils # (auto) 0.03 K/uL (0.00-0.20); Basophils % (auto) 0.3 %; Eosinophils # (auto) 0.09 K/uL (0.00-0.50); Eosinophils % (auto) 0.8 %; Hematocrit (blood only) 30.2 % (37.0-47.0); Hemoglobin 10.1 g/dl (12.0-16.0); Immature Granulocytes # (auto) 0.06 K/uL (0.01-0.20); Immature Granulocytes % (auto) 0.5 %; Lymphocytes # (auto) 1.69 K/uL (1.20-3.40); Lymphocytes % (auto) 15.1 %; Mean Corpuscular Hemoglobin 28.7 pg (25.0-34.0); Mean Corpuscular Hgb Conc 33.4 g/dL (32.0-36.0); Mean Corpuscular Volume 85.8 fL (80.0-100.0); Mean Platelet Volume 11.7 fL (9.4-12.4); Monocytes % (auto) 8.9 %; Neutrophils # (auto) 8.31 K/uL (1.40-6.50); Neutrophils % (auto) 74.4 %; Platelet Count 158 K/uL (130-400); RDW Coefficient of Variation 13.7 % (11.5-14.5); RDW Standard Deviation 42.8 fL (36.4-46.3); Red Blood Count 3.52 M/uL (4.20-5.40); White Blood Count 11.18 K/ul (4.8-10.8)
[2024-03-24] MEDS: PRENATAL VITAMIN 1 TAB PO SCH (08:25)
[2024-03-24] MEDS: FERROUS SULFATE 325 MG TAB PO SCH (08:26)
[2024-03-24] MEDS: IBUPROFEN 600 MG TAB PO PRN (10:34)
[2024-03-24] MEDS: ACETAMINOPHEN 325 MG TAB PO PRN (10:34)
[2024-03-24] MEDS ORDERED: Nursing to Pharmacy Communication SCH (19:15)
[2024-03-24] MEDS: bisacodyL 5 MG TABEC PO SCH (20:26)
[2024-03-25] MEDS: ACETAMINOPHEN 325 MG TAB PO PRN (05:25)
[2024-03-25 07:17] LABS: Hematocrit (blood only) 31.1 % (37.0-47.0); Hemoglobin 10.3 g/dl (12.0-16.0)
[2024-03-25] MEDS: SODIUM CHLORIDE 0.9% 1,000 ML IV SCH (07:22)
[2024-03-25] MEDS: MoRPHine SULFATE PF 1 MG/ML 10 ML AMP/VIAL INT SPINAL ONE (07:22)
[2024-03-25] MEDS: DIPHTHER/TETAN/PERTUS Vaccine (Tdap, Adol/Adult) 0.5mL IM ONE (07:22)
[2024-03-25] MEDS: BUTORPHANOL TARTRATE 2 MG/ML VIAL ONE (07:22)
--- NOTE | 2024-03-25 07:55 | Obstetrical Progress Note ---
Date of Service March 25, 2024 Assessment & Plan (1) care following delivery: Day 2 status post repeat . Doing well. Stable for discharge as preferred Subjective Ambulation: ambulating normally Voiding: no voiding problems Passing Gas:: Yes Diet Tolerance:: regular diet Lochia:: Moderate Feeding Type:: breast feeding Physical Exam Constitutional WD/WN, vitals as above Respiratory normal respiratory effort; no respiratory distress and no labored breathing Gastrointestinal (Abdomen) Inspection/Auscultation: abdomen normal to inspection; abdomen not distended Percussion/Palpation: abdomen soft; abdomen nontender, no guarding and abdomen not rigid Musculoskeletal No calf tenderness Genitourinary OB Exam Abdomen: + fundal height Fundus: + firm and + relation to umbilicus (Below); not tender or not boggy Results & Data Vital Signs (Past 12 Hours) Vital Signs Temp Pulse Resp BP Pulse Ox O2 Del Method 03/24/24 23:25 36.8 C 92 H 18 127/84 98 Room Air 03/24/24 20:40 36.4 C L 100 H 18 106/73 100 Room Air
[2024-03-25] MEDS ORDERED: bisacodyL 10 MG SUPP PR PRN (12:22)
--- NOTE | 2024-03-26 12:55 | Discharge Summary ---
Date of Service March 26, 2024 Admission HPI Per Admitting Provider Patient is a 33yowf with iup at 39 2/7 weeks who presents for a repeat . Hx of x 2. Desires Tubal sterilization. the has been complicated by GDM on insulin. Last us was 03/02 with AC 98% and efw 88%. First was at an outside hospital for ftp. Second was elective repeat for a >9# baby. she is also a smoker. and Delivery Plans GDM on insulin *Wkly NSTs @32wks and Twice wkly @36wks *Serial growth US @28wks *Deliver by EDC Obesity (BMI between 35-39 @ beginning of ) *Growth US @ 32 wks *Weekly NSTs @ 36wks Previous x2 Schedule repeat section and BTL @ 28wk C/S WITH HARDYK ON 03/22/24, BAKARI TO ASSIST Current everyday smoker Flu shot given 09/14/23 - AL Lab Results OB Labs: Blood Type B Positive 09/14/23 Antibody Screen NEGATIVE 09/14/23 Hemoglobin 11.9 g/dl (12.0-16.0) L 01/05/24 Hematocrit 33.8 % (37.0-47.0) L 01/05/24 Mean Corpuscular Volume 86.8 fL (80.0-100.0) 09/14/23 Platelet Count 271 K/uL (130-400) 09/14/23 Varicella-Zoster IgG Antibody 3844.00 INDEX 06/28/18 Rubella IgG Antibody Immune (Immune) 09/14/23 Rapid Plasma Reagin Nonreactive (Nonreactive) 09/14/23 Hepatitis B Surface Antigen Neg (Neg) 06/02/20 Hepatitis B Surface Antigen. NON-REACTIVE (NON-REACTIVE) 09/14/23 Hepatitis C Antibody (EIA) NON-REACTIVE (NON-REACTIVE) 09/14/23 HIV (1&2) Ab and P24 Ag, 4th Gener Neg (Neg) 06/02/20 HIV (1&2) Ag and Ab Confirmation NON-REACTIVE (NON-REACTIVE) 09/14/23 Glucose 1 Hour 50 gm Load 177 mg/dl (70-130) H 11/03/20 OB Optional Labs: Chlamydia trachomatis RNA Not Detected (NotDetected) 08/17/23 Neisseria gonorrhoeae RNA Not Detected (NotDetected) 08/17/23 Labs Reviewed: (-) CF/SMA- 2014, [facility] low risk panorama--[facility] GBS positive. Discharge Data Consultations 03/23/24 06:36 Consult Anesthesiology Stat Procedures Performed Operation Date: 03/23/24 11:20 Actual Procedures p Section with - Shayy Casarez MD, FACOG s Bilateral Tubal Ligation - Shayy Casarez MD, [facility] [place] (1) care following delivery: Plan Patient underwent a repeat lower transvers and bilateral salpingectomy without issues on 03/23/24. QBL 83cc. Her postop course was unc omplicated--tolerated regular diet, ambulated, voided with removal of fried, pain controlled on oral pain meds. She was d/c home on pod #2. D/c h/h 10.3/31.1. Will f/u in the office in 6 weeks. Coding Level of Care Code None Diagnoses care following delivery Z39.2
== END 2024-03-25 10:20 | disposition home or self-care (01) | DRG 785 ==
LOC: 4S1 04:35 → EDSTATUS 07:30 → 4E2 15:05
PROC: M.PPTLD (2024-03-23 11:20)